=== PATIENT | male | born 1975 | race Caucasian/White ===

== ENCOUNTER 2023-04-14 08:01 | Emergency (ER) | payer SELFPAY ==
[2023-04-14 08:08] VITALS: BP 111/77; PULSE 80; RESP 14; TEMP 36.2; O2SAT 99; BMI 27.6
--- NOTE | 2023-04-14 08:12 | ED.WOUNDLAC ---
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 He rinsed the finger out fully. No numbness tingling, states fingers fully mobile. Last tetanus in the system is in 2010. Patient is , thinks he might be up-to-date closer than 2010 but is unsure. He opted to just have his tetanus updated. He is sure it is been longer than 3 years. Related Data Home Medications Medication Instructions Recorded Confirmed No Known Home Medications 04/14/23 04/14/23 Allergies Allergy/AdvReac Type Severity Reaction Status Date / Time No Known Drug Allergies Allergy Verified 04/14/23 08:08 Review of Systems Narrative: As per HPI. Exam Const: Vital Signs, click to edit/add: Vital Signs - 24 hr 04/14/23 08:08 Temperature 97.2 F L Pulse Rate [Pulse Oximeter] 80 Respiratory Rate 14 Blood Pressure [Ri ght Upper Arm] 111/77 Pulse Oximetry 99 Oxygen Delivery Me thod Room Air Patient is holding a washcloth in the palm of his right hand. He has a wound on the right 3rd finger just along the skin fold at the base of the palmar surface of the right 3rd finger of the metacarpophalangeal joint. There is no active bleeding at this time, but when wound is inspected, it does open just into the subcutaneous tissue and started oozing again. He demonstrates full range of motion. Wound was anesthetized with 4% lidocaine, 4 mL was drawn up and about 2 mL was used locally. Wound was cleaned with the wound cleanser and inspected. It is just into the dermis maybe into subcutaneous tissue but certainly does not extend deeper. There is no underlying tendon involvement. Neurovascular and full range of motion strength intact prior to anesthesia. Documenting provider has reviewed patient's vital signs: yes Course Vital Signs Vital signs: Initial Vital Signs Temperature 97.2 F L 04/14/23 08:08 Temperature Source Temporal Artery Scan 04/14/23 08:08 Pulse Rate 80 04/14/23 08:08 Pulse Rhythm Regular 04/14/23 08:08 Respiratory Rate 14 04/14/23 08:08 Blood Pressure 111/77 04/14/23 08:08 Blood Pressure Mean 88 04/14/23 08:08 Blood Pressure Position Sitting 04/14/23 08:08 Pulse Oximetry 99 04/14/23 08:08 Oxygen Delivery Method Room Air 04/14/23 08:08 Vital Signs Temperature 97.2 F L 04/14/23 08:08 Pulse Rate 80 04/14/23 08:08 Respiratory Rate 14 04/14/23 08:08 Blood Pressure 111/77 04/14/23 08:08 Pulse Oximetry 99 04/14/23 08:08 Oxygen Delivery Method Room Air 04/14/23 08:08 Temperature 97.2 F L 04/14/23 08:08 Pulse Rate 80 04/14/23 08:08 Respiratory Rate 14 04/14/23 08:08 Blood Pressure 111/77 04/14/23 08:08 Pulse Oximetry 99 04/14/23 08:08 Oxygen Delivery Method Room Air 04/14/23 08:08 Discharge Plan Discharge Clinical Impression: Laceration Patient Disposition: Home, Self-Care Condition: Stable Instructions: Care For Your Stitches (ED), Finger Laceration (ED) Additional Instructions: May shower and wash hands as usual but otherwise would protect this wound using bacitracin and bandages to keep clean and dry. Need to make a clinic appointment in about 7-10 days to assess the wound for suture removal. If there are any concerns for infection, do need to seek re-evaluation. Fine to use Tylenol and ibuprofen per bottle directions if you have any discomfort. Activity Level: Activity as Tolerated Prescriptions: No Action No Known Home Medications Stand Alone Forms: [facility] Info Instructions Procedures Laceration Laceration 1: Pre procedure diagnosis: Right 3rd finger laceration, palmar surface Post procedure diagnosis: Same Site marking: not applicable Name of person performing procedure: Sari Bojorquez Site: hand Side (If applicable): right Size (cm): 1 Description: linear Depth: simple, single layer Local Anesthetic: lidocaine 2% Amount of anesthesia used (mL): 4 (2 mL infiltrated into the tissue with good anesthesia) Pre-repair: wound explored, irrigated extensively and deep structures intact Skin layer closed with: other (Ethilon) Size (cm): 4-0 Number of sutures: 4 Technique: simple, interrupted Wound cleansing: soap Estimated blood loss (if any): less than 5mls Conclusion: patient tolerated procedure
[2023-04-14] MEDS: TETANUS/DIPHTH/PERTUSSIS 0.5 ML SYRINGE IM (08:35)
[2023-04-14] MEDS: lidocaine HCL 2 % MULTIDOSE 20 ML VIAL 4 ML INJECTION (08:38)
[2023-04-14 08:50] VITALS: BP 111/77; PULSE 80; RESP 14; TEMP 36.2
== END 2023-04-14 09:02 | disposition home or self-care (01) ==
PROVIDERS: Emergency Provider Family Medicine
DX: S61.212A Laceration without foreign body of right middle finger without damage to nail, initial encounter (principal); W25.XXXA Contact with sharp glass, initial encounter; Y93.G1 Activity, food preparation and clean up
CPT/HCPCS: 12001; 90471; 90715; 99283